=== PATIENT | female | born 1975 | race Caucasian/White ===

== ENCOUNTER 2017-01-12 11:40 | Outpatient (CLI) | payer SELFPAY | END 2017-01-12 14:20 | disposition home or self-care (01) | LOC: TRG 11:40 | PROVIDERS: ATTEND Obstetrics & Gynecology | DX: O09.523 Supervision of elderly multigravida, third trimester (principal); Z3A.34 34 weeks gestation of pregnancy | CPT/HCPCS: 59025; 82962 ==

== ENCOUNTER 2017-02-01 21:33 | Outpatient (CLI) | payer SELFPAY ==
[2017-02-01 23:12] VITALS: BP 105/63
== END 2017-02-01 23:26 | disposition home or self-care (01) ==
LOC: TRG 21:33
PROVIDERS: ATTEND Obstetrics & Gynecology
DX: O09.523 Supervision of elderly multigravida, third trimester (principal); O47.1 False labor at or after 37 completed weeks of gestation; Z3A.37 37 weeks gestation of pregnancy
CPT/HCPCS: 59025; 82962